=== PATIENT | male | born 1965 | race Caucasian/White ===

== ENCOUNTER 2018-09-05 12:04 | Inpatient (IN) ==
[2018-09-05] MEDS ORDERED: IBUPROFEN 600 MG TAB PO STA (12:27)
[2018-09-05] MEDS ORDERED: SODIUM CHLORIDE 0.9% 1000ML 1,000 ML IV SCH ×2 (12:30→14:00)
[2018-09-05 12:52] LABS: Basophils # (auto) 0.02 K/uL (0-0.2); Basophils % (auto) 0.1 %; Eosinophils # (auto) 0.04 K/uL (0-0.5); Eosinophils % (auto) 0.3 %; Hemoglobin 14.5 g/dL (14.0-18.0); Immature Granulocytes # (auto) 0.05 K/uL (0.00-0.02); Immature Granulocytes % (auto) 0.4 %; Lymphocytes # (auto) 0.95 K/uL (1.2-3.4); Lymphocytes % (auto) 6.7 %; Mean Corpuscular Hgb Conc 32.2 g/dL (32-36); Mean Corpuscular Volume 90.2 fL (80-100); Mean Platelet Volume 8.9 fL (7.4-10.4); Monocytes # (auto) 0.76 K/uL (0.11-0.59); Monocytes % (auto) 5.3 %; Neutrophils # (auto) 12.44 K/uL (1.4-6.5); Neutrophils % (auto) 87.2 %; Platelet Count 190 K/uL (130-400); RDW Coefficient of Variation 14.9 % (11.5-14.5); RDW Standard Deviation 48.8 fL (36.4-46.3); Red Blood Count 4.99 M/uL (4.7-6.1); White Blood Count 14.26 K/uL (4.8-10.8)
[2018-09-05 13:18] LABS: Alanine Aminotransferase 51 U/L (12-78); Albumin Globulin Ratio 0.7 (0.9-2); Albumin Level 3.6 gm/dl (3.4-5.0); Alkaline Phosphatase 68 U/L (45-117); Aspartate Aminotransferase 24 U/L (15-37); BUN Creatinine Ratio 17.3 (10-20); Bilirubin,Total 0.4 mg/dl (0.2-1); Blood Urea Nitrogen 22 mg/dl (7-18); Calcium 8.7 mg/dl (8.5-10.1); Carbon Dioxide 27 mmol/L (21-32); Chloride 100 mmol/L (98-107); Creatinine Clr Calc Pharmacy 110.3 ml/min; Est GFR (African American) 75.3; Globulin 4.9 gm/dl (2.5-4.0); Glucose 140 mg/dl (70-99); Magnesium 1.6 mg/dl (1.8-2.4); Potassium 4.7 mmol/L (3.5-5.1); Sodium 134 mmol/L (136-145); Total Protein 8.5 gm/dl (6.4-8.2); Troponin I < 0.015 ng/ml (0-0.045)
--- NOTE | 2018-09-05 13:43 | XRay Report ---
XR chest 2V routine HISTORY: 53 years-old Male Cough, fever, chest pain acute cough and fever COMPARISON: None available TECHNIQUE: PA and lateral views of the chest FINDINGS: Cardiomediastinal and hilar silhouettes are within normal limits. Mild right hemidiaphragmatic elevat ion. There is no pneumothorax, pleural effusion, focal airspace consolidation or overt pulmonary angelique a. Bones of the chest appear grossly intact. IMPRESSION: No acute process. The above report was generated using voice recognition software. It may contain grammatical, syntax o r spelling errors. Electronically signed by: Anatoliy Nelson M.D. 09/05/2018 1:42 PM
[2018-09-05] MEDS ORDERED: OPTIRAY 320 125ml IV PRN (16:02)
[2018-09-05 16:30] LABS: Appearance Urine Clear (Clear); Bilirubin Urine Negative (Negative); Color Urine Dark Yellow; Glucose Urine UA Negative (Negative); Ketones Urine Negative (Negative); Leukocyte Esterase Urine Negative (Negative); Nitrite Urine Negative (Negative); Protein Urine Negative (Negative); Specific Gravity Urine 1.029 (1.000-1.030); Urobilinogen Urine Negative (Negative)
--- NOTE | 2018-09-05 16:50 | CT Scan Report ---
CT angio chest PE protocol CT DOSE: 886.48 mGy.cm HISTORY: 53 years-old Male with febrile, cough, tachycardia, chest pain. Acute cough with tachycard ia and chest pain TECHNIQUE: Multiple CTA images of the chest were obtained after the intravenous administration of 116 ml Optiray 320. Coronal and sagittal MIPS were obtained from the axial data set and were submitted for review. All measurements were obtained according to NASCET criteria. A dose lowering technique w as utilized adhering to the principles of ALARA. Repeat CTA was conducted with 119 mL Optiray 320 IV contrast. COMPARISON: Chest radiograph of same day FINDINGS: CTA: Heart is upper limits of normal in size without pericardial effusion. No thoracic aortic aneurysm or dissection. Imaged great vessels appear patent. Pulmonary arterial tree is opacified to the lobar bra nches. Segmental and subsegmental branches not well seen secondary to contrast bolus timing and respi ratory motion. No evidence of central pulmonary thromboembolic disease. CT CHEST: Normal appearance of the thyroid. Prominent nonenlarged mediastinal lymph nodes, likely reactive. No pneumothorax or pleural effusion. Mild dependent subsegmental bibasilar atelectasis. There are no veronica picious pulmonary nodules or masses identified. 1 mm calcific granuloma of the V2 segment right upper lobe. Central airways appear patent. Hepatomegaly with hepatic steatosis. No acute process of the imaged upper abdomen. Soft tissues are w ithin normal limits. Bones appear intact. IMPRESSION: 1. Limited study as above. No evidence of central pulmonary thromboembolic disease. 2. No pleural effusion or focal airspace consolidation. 3. Hepatomegaly with hepatic steatosis. The above report was generated using voice recognition software. It may contain grammatical, syntax o r spelling errors. Electronically signed by: Anatoliy Nelson M.D. 09/05/2018 4:48 PM
[2018-09-05 16:52] LABS: Lyme Ab IgG w/WB Rflx Negative (Negative); Lyme Ab IgM w/WB Rflx Negative (Negative)
--- NOTE | 2018-09-05 17:39 | Emergency Department Note ---
History of Present Illness General Chief complaint: Fever Stated complaint: CHILLS, FEVER 103 Time Seen by Provider: 09/05/18 12:16 History of Present Illness Maximum Pain Intensity: 7 This is a 53-year-old male that presents to the emergency department via private vehicle with complaints of "chills, fever 103". The patient notes that he has had a cough for the past few weeks. He notes that he has been producing phlegm with the cough. No hemoptysis. He notes that this morning and he awoke with chills, was shaking and then took Tylenol around 10 AM. He has also had difficulty with sleeping. He notes the pain in his chest also began this morning and diffuse body aches and joint pain. He rates the overall pain currently as a 7/10. He notes he was on metformin in the past but does not take this anymore. He does not smoke. He does not have any known medical problems. He notes that he does work in [place] and recently returned home. Home Medications Home Medications Medication Instructions Recorded Confirmed Type No Known Home Medications 09/05/18 09/05/18 History Allergies Allergy/AdvReac Type Severity Reaction Status Date / Time No Known Allergies Allergy Unverified 09/05/18 12:33 Past Med/Surg History Medical History No pertinent past medical history Family History Other CHF (congestive heart failure) COPD (chronic obstructive pulmonary disease) Social History Current Living Situation: Alone Other Information That Helps Us Care for You: No Feels Safe at Home: Yes Safety Concerns: Feels Safe At This Time Smoking Status: Never smoker Hx Alcohol Use: No Hx Substance Use: No Beliefs That Will Affect Care: None Communication Ability: Effective Iv Therapy Nurse Required: No Review of Systems A total of 10 systems reviewed and were otherwise negative Physical Exam Vital Signs Vital Signs - 24 hr 09/05/18 12:11 09/05/18 13:27 09/05/18 15:10 Temperature 38.1 C H 39.5 C H 36.9 C Temperature Source Oral Oral Oral Sepsis Recent Fever Within 48 Hours Yes Sepsis New/Unexplained Change in Mental Status No Sepsis Action Taken by Nursing No Action Required Pulse Rate 128 H Pulse Rate [Apical] 134 H 126 H Pulse Rhythm [Apical] Pulse Strength Normal Pulse Strength [Apical] Respiratory Rate 22 24 23 Respiratory Effort / Characteristics Respiratory Depth Normal Respiratory Pattern Blood Pressure 173/88 H Blood Pressure [Left Arm] Blood Pressure [Right Arm] 149/74 H 108/60 Blood Pressure Mean 116 Blood Pressure Mean [Left Arm] Blood Pressure Mean [Right Arm] 99 76 Blood Pressure Position [Left Arm] Blood Pressure Position [Right Arm] Pulse Oximetry 96 91 97 Oxygen Delivery Method Room Air Room Air Room Air Oxygen Flow Rate 09/05/18 16:38 09/05/18 16:43 09/05/18 16:49 Temperature 38.2 C H Temperature Source Oral Sepsis Recent Fever Within 48 Hours Sepsis New/Unexplained Change in Mental Status Sepsis Action Taken by Nursing Pulse Rate Pulse Rate [Apical] 128 H Pulse Rhythm [Apical] Pulse Strength Pulse Strength [Apical] Respiratory Rate 30 H Respiratory Effort / Characteristics Respiratory Depth Respiratory Pattern Blood Pressure Blood Pressure [Left Arm] Blood Pressure [Right Arm] 107/57 L Blood Pressure Mean Blood Pressure Mean [Left Arm] Blood Pressure Mean [Right Arm] 73 Blood Pressure Position [Left Arm] Blood Pressure Position [Right Arm] Pulse Oximetry 89 L 90 94 Oxygen Delivery Method Room Air Room Air Nasal Cannula Oxygen Flow Rate 2 09/05/18 18:21 09/05/18 18:45 09/05/18 23:41 Temperature 37.4 C 36.9 C Temperature Source Oral Oral Sepsis Recent Fever Within 48 Hours Sepsis New/Unexplained Change in Mental Status Sepsis Action Taken by Nursing Pulse Rate 122 H Pulse Rate [Apical] 130 H 115 H Pulse Rhythm [Apical] Regular Pulse Strength Pulse Strength [Apical] Respiratory Rate 18 25 H 24 Respiratory Effort / Characteristics Spontaneous Short of Breath Respiratory Depth Normal Respiratory Pattern Regular Blood Pressure 100/65 Blood Pressure [Left Arm] Blood Pressure [Right Arm] 116/70 121/72 Blood Pressure Mean Blood Pressure Mean [Left Arm] Blood Pressure Mean [Right Arm] 85 88 Blood Pressure Position [Left Arm] Blood Pressure Position [Right Arm] Sitting Pulse Oximetry 92 93 93 Oxygen Delivery Method Room Air Room Air Oxygen Flow Rate 09/06/18 00:00 09/06/18 04:00 09/06/18 06:52 Temperature 37.7 C H 36.4 C L Temperature Source Oral Oral Sepsis Recent Fever Within 48 Hours Sepsis New/Unexplained Change in Mental Status Sepsis Action Taken by Nursing Pulse Rate 114 H Pulse Rate [Apical] 103 H 102 H Pulse Rhythm [Apical] Pulse Strength Pulse Strength [Apical] Normal Respiratory Rate 28 H 18 Respiratory Effort / Characteristics SOB on Exertion Respiratory Depth Normal Respiratory Pattern Tachypnea Blood Pressure Blood Pressure [Left Arm] 118/62 Blood Pressure [Right Arm] 125/65 Blood Pressure Mean Blood Pressure Mean [Left Arm] 80 Blood Pressure Mean [Right Arm] 85 Blood Pressure Position [Left Arm] Lying Blood Pressure Position [Right Arm] Pulse Oximetry 92 Oxygen Delivery Method Room Air Oxygen Flow Rate VITAL SIGNS - Vital signs and nursing notes were reviewed. Patient is tachycardic, febrile and hypertensive. GENERAL -53 [id number] appearing his stated age who is in no acute distress but does appear ill. Communicates well with provider and answers questions appropriately. SKIN - Without rashes. HEAD - NC/AT. EYES - PERRL with EOMI bilaterally. Sclera anicteric. EARS - No deformities of external structures noted on gross examination bilaterally. External auditory canals without discharge or otorrhea. Tympanic membranes pearly buckner without retraction or bulging. No fluid or purulent material visualized behind the TM. Handle of malleus, umbo, cone of light, pars tensa/flaccid all easily visualized. NOSE - Midline and without cyanosis. No epistaxis or purulent drainage noted. Septum midline without deviation or septal hematoma noted. MOUTH/OROPHARYNX - Without perioral cyanosis. Buccal mucosa pink and moist and without leukoplakia. Tongue midline with equal elevation of palate bilaterally. Minimal posterior pharyngeal erythema. No tonsillar hypertrophy, or exudates noted. Fair dentition noted. NECK - Neck with FROM. Supple to palpation. No lymphadenopathy noted. No nuchal rigidity. LUNGS - Chest wall symmetric without accessory muscle use, intercostals retractions, or central cyanosis. Normal vesicular breath sounds CTA B/L. No wheezes, rales, or rhonchi appreciated. CARDIAC - RRR with S1/S2. No murmur, rubs, or gallops appreciated. ABDOMEN - Abdominal contour normal without pulsations or visible masses. BS normoactive all four quadrants. No tenderness, palpable masses, hepatosplenomegaly, or ascites noted. EXTREMITIES - No clubbing or peripheral cyanosis. No pretibial edema present. +5 /5 strength noted in UE/LE bilaterally. NEUROLOGIC - Cranial nerves II through XII grossly intact. PSYCH - A&O, and cooperates fully with examiner. Pt is very pleasant and interacts well with examiner. Course Administered Medications Acetaminophen (Tylenol) 650 mg PO Q4H PRN PRN Reason: Pain or Fever Stop: 10/05/18 18:55 Last Admin: 09/05/18 22:35 Dose: 650 mg Enoxaparin Sodium (Lovenox) 40 mg SQ Q24H PHILIP Stop: 10/05/18 21:59 Last Admin: 09/05/18 22:25 Dose: 40 mg Sodium Chloride (Nss 1000ml) 1,000 mls @ 125 mls/hr IV .Q8H PHILIP Stop: 09/06/18 10:55 Last Admin: 09/06/18 03:34 Dose: 125 mls/hr Infusion: 09/06/18 03:26 Dose: 125 mls/hr Admin: 09/05/18 19:26 Dose: 125 mls/hr Ibuprofen (Motrin) 600 mg PO Q6H PRN PRN Reason: Fever Stop: 10/05/18 18:55 Last Admin: 09/06/18 03:30 Dose: 600 mg Discontinued Medications Sodium Chloride (Nss 1000ml) 1,000 mls @ 999 mls/hr IV .Q1H1M PHILIP Stop: 09/05/18 13:30 Last Infusion: 09/05/18 14:01 Dose: 0 mls/hr Admin: 09/05/18 12:49 Dose: 999 mls/hr Sodium Chloride (Nss 1000ml) 1,000 mls @ 999 mls/hr IV .Q1H1M PHILIP Stop: 09/05/18 15:00 Last Infusion: 09/05/18 15:11 Dose: 0 mls/hr Admin: 09/05/18 14:01 Dose: 999 mls/hr Ibuprofen (Motrin) 600 mg PO NOW STA Stop: 09/05/18 12:28 Last Admin: 09/05/18 12:49 Dose: 600 mg Ioversol (Optiray 320 125ml) 119 ml IV ONCE PRN PRN Reason: Interaction Checking Stop: 09/09/18 16:01 Last Admin: 09/05/18 16:02 Dose: 119 ml Medical Decision Making Laboratory Data Result diagrams: 09/06/18 05:30 09/06/18 05:30 Lab Results 09/05/18 09/05/18 09/05/18 Range/Units 12:36 12:44 12:44 WBC 14.26 H (4.8-10.8) K/uL RBC 4.99 (4.7-6.1) M/uL Hgb 14.5 (14.0-18.0) g/dL Hct 45.0 (42-52) % MCV 90.2 (80-100) fL MCH 29.1 (25-34) pg MCHC 32.2 (32-36) g/dL RDW Std Deviation 48.8 H (36.4-46.3) fL RDW Coeff of Luke 14.9 H (11.5-14.5) % Plt Count 190 (130-400) K/uL MPV 8.9 (7.4-10.4) fL Immature Gran % (Auto) 0.4 % Neut % (Auto) 87.2 % Lymph % (Auto) 6.7 % Lander % (Auto) 5.3 % Eos % (Auto) 0.3 % Baso % (Auto) 0.1 % Immature Gran # (Auto) 0.05 H (0.00-0.02) K/uL Neut # (Auto) 12.44 H (1.4-6.5) K/uL Lymph # (Auto) 0.95 L (1.2-3.4) K/uL Lander # (Auto) 0.76 H (0.11-0.59) K/uL Eos # (Auto) 0.04 (0-0.5) K/uL Baso # (Auto) 0.02 (0-0.2) K/uL ESR (0-14) mm/hr PT (9.0-12.0) Seconds INR (0.9-1.1) APTT (21.0-31.0) Seconds PTT Ratio D-Dimer (0-500) ug/L FEU Sodium 134 L (136-145) mmol/L Potassium 4.7 (3.5-5.1) mmol/L Chloride 100 (98-107) mmol/L Carbon Dioxide 27 (21-32) mmol/L Anion Gap 7.0 (3-11) BUN 22 H (7-18) mg/dl Creatinine 1.27 (0.6-1.4) mg/dl Est Cr Clr Drug Dosing 110.3 ml/min Est GFR ( Amer) 75.3 Est GFR (Non-Af Amer) 65.0 BUN/Creatinine Ratio 17.3 (10-20) Glucose 140 H (70-99) mg/dl Lactate (0.4-2.0) mmol/L Calcium 8.7 (8.5-10.1) mg/dl Magnesium 1.6 L (1.8-2.4) mg/dl Total Bilirubin 0.4 (0.2-1) mg/dl AST 24 (15-37) U/L ALT 51 (12-78) U/L Alkaline Phosphatase 68 (45-117) U/L Troponin I < 0.015 (0-0.045) ng/ml C-Reactive Protein (0-0.29) mg/dl Total Protein 8.5 H (6.4-8.2) gm/dl Albumin 3.6 (3.4-5.0) gm/dl Globulin 4.9 H (2.5-4.0) gm/dl Albumin/Globulin Ratio 0.7 L (0.9-2) Specimen Hemolysis Urine Color Urine Appearance (Clear) Urine pH (4.5-7.5) Ur Specific Azalea (1.000-1.030) Urine Protein (Negative) Urine Glucose (UA) (Negative) Urine Ketones (Negative) Urine Blood (Negative) Urine Nitrite (Negative) Urine Bilirubin (Negative) Urine Urobilinogen (Negative) Ur Leukocyte Esterase (Negative) Lyme Disease IgG Ab (Negative) Lyme Disease IgM Ab (Negative) Influenza Type A Ag Neg for Influ A (Neg) Influenza Type B Ag Neg for Influ B (Neg) 09/05/18 09/05/18 09/05/18 Range/Units 12:44 12:44 15:42 WBC (4.8-10.8) K/uL RBC (4.7-6.1) M/uL Hgb (14.0-18.0) g/dL Hct (42-52) % MCV (80-100) fL MCH (25-34) pg MCHC (32-36) g/dL RDW Std Deviation (36.4-46.3) fL RDW Coeff of Luke (11.5-14.5) % Plt Count (130-400) K/uL MPV (7.4-10.4) fL Immature Gran % (Auto) % Neut % (Auto) % Lymph % (Auto) % Lander % (Auto) % Eos % (Auto) % Baso % (Auto) % Immature Gran # (Auto) (0.00-0.02) K/uL Neut # (Auto) (1.4-6.5) K/uL Lymph # (Auto) (1.2-3.4) K/uL Lander # (Auto) (0.11-0.59) K/uL Eos # (Auto) (0-0.5) K/uL Baso # (Auto) (0-0.2) K/uL ESR (0-14) mm/hr PT 10.6 (9.0-12.0) Seconds INR 1.1 (0.9-1.1) APTT 26.0 (21.0-31.0) Seconds PTT Ratio 1.0 D-Dimer 570 H* (0-500) ug/L FEU Sodium (136-145) mmol/L Potassium (3.5-5.1) mmol/L Chloride (98-107) mmol/L Carbon Dioxide (21-32) mmol/L Anion Gap (3-11) BUN (7-18) mg/dl Creatinine (0.6-1.4) mg/dl Est Cr Clr Drug Dosing ml/min Est GFR ( Amer) Est GFR (Non-Af Amer) BUN/Creatinine Ratio (10-20) Glucose (70-99) mg/dl Lactate (0.4-2.0) mmol/L Calcium (8.5-10.1) mg/dl Magnesium (1.8-2.4) mg/dl Total Bilirubin (0.2-1) mg/dl AST (15-37) U/L ALT (12-78) U/L Alkaline Phosphatase (45-117) U/L Troponin I (0-0.045) ng/ml C-Reactive Protein (0-0.29) mg/dl Total Protein (6.4-8.2) gm/dl Albumin (3.4-5.0) gm/dl Globulin (2.5-4.0) gm/dl Albumin/Globulin Ratio (0.9-2) Specimen Hemolysis Urine Color Urine Appearance (Clear) Urine pH (4.5-7.5) Ur Specific Azalea (1.000-1.030) Urine Protein (Negative) Urine Glucose (UA) (Negative) Urine Ketones (Negative) Urine Blood (Negative) Urine Nitrite (Negative) Urine Bilirubin (Negative) Urine Urobilinogen (Negative) Ur Leukocyte Esterase (Negative) Lyme Disease IgG Ab Negative (Negative) Lyme Disease IgM Ab Negative (Negative) Influenza Type A Ag (Neg) Influenza Type B Ag (Neg) 09/05/18 09/05/18 09/06/18 Range/Units 15:42 16:15 05:30 WBC 17.67 H (4.8-10.8) K/uL RBC 4.54 L (4.7-6.1) M/uL Hgb 13.0 L (14.0-18.0) g/dL Hct 40.7 L (42-52) % MCV 89.6 (80-100) fL MCH 28.6 (25-34) pg MCHC 31.9 L (32-36) g/dL RDW Std Deviation 50.2 H (36.4-46.3) fL RDW Coeff of Luke 15.2 H (11.5-14.5) % Plt Count 172 (130-400) K/uL MPV 8.5 (7.4-10.4) fL Immature Gran % (Auto) 0.2 % Neut % (Auto) 88.2 % Lymph % (Auto) 5.0 % Lander % (Auto) 6.3 % Eos % (Auto) 0.1 % Baso % (Auto) 0.2 % Immature Gran # (Auto) 0.04 H (0.00-0.02) K/uL Neut # (Auto) 15.58 H (1.4-6.5) K/uL Lymph # (Auto) 0.89 L (1.2-3.4) K/uL Lander # (Auto) 1.12 H (0.11-0.59) K/uL Eos # (Auto) 0.01 (0-0.5) K/uL Baso # (Auto) 0.03 (0-0.2) K/uL ESR (0-14) mm/hr PT (9.0-12.0) Seconds INR (0.9-1.1) APTT (21.0-31.0) Seconds PTT Ratio D-Dimer (0-500) ug/L FEU Sodium (136-145) mmol/L Potassium (3.5-5.1) mmol/L Chloride (98-107) mmol/L Carbon Dioxide (21-32) mmol/L Anion Gap (3-11) BUN (7-18) mg/dl Creatinine (0.6-1.4) mg/dl Est Cr Clr Drug Dosing ml/min Est GFR ( Amer) Est GFR (Non-Af Amer) BUN/Creatinine Ratio (10-20) Glucose (70-99) mg/dl Lactate 2.2 H* (0.4-2.0) mmol/L Calcium (8.5-10.1) mg/dl Magnesium (1.8-2.4) mg/dl Total Bilirubin (0.2-1) mg/dl AST (15-37) U/L ALT (12-78) U/L Alkaline Phosphatase (45-117) U/L Troponin I (0-0.045) ng/ml C-Reactive Protein (0-0.29) mg/dl Total Protein (6.4-8.2) gm/dl Albumin (3.4-5.0) gm/dl Globulin (2.5-4.0) gm/dl Albumin/Globulin Ratio (0.9-2) Specimen Hemolysis Urine Color Dark Yellow Urine Appearance Clear (Clear) Urine pH 6.0 (4.5-7.5) Ur Specific Azalea 1.029 (1.000-1.030) Urine Protein Negative (Negative) Urine Glucose (UA) Negative (Negative) Urine Ketones Negative (Negative) Urine Blood Negative (Negative) Urine Nitrite Negative (Negative) Urine Bilirubin Negative (Negative) Urine Urobilinogen Negative (Negative) Ur Leukocyte Esterase Negative (Negative) Lyme Disease IgG Ab (Negative) Lyme Disease IgM Ab (Negative) Influenza Type A Ag (Neg) Influenza Type B Ag (Neg) 09/06/18 09/06/18 09/06/18 Range/Units 05:30 08:10 08:10 WBC (4.8-10.8) K/uL RBC (4.7-6.1) M/uL Hgb (14.0-18.0) g/dL Hct (42-52) % MCV (80-100) fL MCH (25-34) pg MCHC (32-36) g/dL RDW Std Deviation (36.4-46.3) fL RDW Coeff of Luke (11.5-14.5) % Plt Count (130-400) K/uL MPV (7.4-10.4) fL Immature Gran % (Auto) % Neut % (Auto) % Lymph % (Auto) % Lander % (Auto) % Eos % (Auto) % Baso % (Auto) % Immature Gran # (Auto) (0.00-0.02) K/uL Neut # (Auto) (1.4-6.5) K/uL Lymph # (Auto) (1.2-3.4) K/uL Lander # (Auto) (0.11-0.59) K/uL Eos # (Auto) (0-0.5) K/uL Baso # (Auto) (0-0.2) K/uL ESR 38 H (0-14) mm/hr PT (9.0-12.0) Seconds INR (0.9-1.1) APTT (21.0-31.0) Seconds PTT Ratio D-Dimer (0-500) ug/L FEU Sodium 135 L (136-145) mmol/L Potassium 3.9 D (3.5-5.1) mmol/L Chloride 103 (98-107) mmol/L Carbon Dioxide 26 (21-32) mmol/L Anion Gap 6.0 (3-11) BUN 24 H (7-18) mg/dl Creatinine 1.19 (0.6-1.4) mg/dl Est Cr Clr Drug Dosing 133.7 ml/min Est GFR ( Amer) 81.5 Est GFR (Non-Af Amer) 70.3 BUN/Creatinine Ratio 20.1 H (10-20) Glucose 114 H (70-99) mg/dl Lactate (0.4-2.0) mmol/L Calcium 7.8 L (8.5-10.1) mg/dl Magnesium 1.7 L (1.8-2.4) mg/dl Total Bilirubin (0.2-1) mg/dl AST (15-37) U/L ALT (12-78) U/L Alkaline Phosphatase (45-117) U/L Troponin I 0.031 (0-0.045) ng/ml C-Reactive Protein 15.40 H (0-0.29) mg/dl Total Protein (6.4-8.2) gm/dl Albumin (3.4-5.0) gm/dl Globulin (2.5-4.0) gm/dl Albumin/Globulin Ratio (0.9-2) Specimen Hemolysis Urine Color Urine Appearance (Clear) Urine pH (4.5-7.5) Ur Specific Azalea (1.000-1.030) Urine Protein (Negative) Urine Glucose (UA) (Negative) Urine Ketones (Negative) Urine Blood (Negative) Urine Nitrite (Negative) Urine Bilirubin (Negative) Urine Urobilinogen (Negative) Ur Leukocyte Esterase (Negative) Lyme Disease IgG Ab (Negative) Lyme Disease IgM Ab (Negative) Influenza Type A Ag (Neg) Influenza Type B Ag (Neg) 09/06/18 09/06/18 Range/Units 08:11 08:11 WBC (4.8-10.8) K/uL RBC (4.7-6.1) M/uL Hgb (14.0-18.0) g/dL Hct (42-52) % MCV (80-100) fL MCH (25-34) pg MCHC (32-36) g/dL RDW Std Deviation (36.4-46.3) fL RDW Coeff of Luke (11.5-14.5) % Plt Count (130-400) K/uL MPV (7.4-10.4) fL Immature Gran % (Auto) % Neut % (Auto) % Lymph % (Auto) % Lander % (Auto) % Eos % (Auto) % Baso % (Auto) % Immature Gran # (Auto) (0.00-0.02) K/uL Neut # (Auto) (1.4-6.5) K/uL Lymph # (Auto) (1.2-3.4) K/uL Lander # (Auto) (0.11-0.59) K/uL Eos # (Auto) (0-0.5) K/uL Baso # (Auto) (0-0.2) K/uL ESR (0-14) mm/hr PT (9.0-12.0) Seconds INR (0.9-1.1) APTT (21.0-31.0) Seconds PTT Ratio D-Dimer (0-500) ug/L FEU Sodium (136-145) mmol/L Potassium (3.5-5.1) mmol/L Chloride (98-107) mmol/L Carbon Dioxide (21-32) mmol/L Anion Gap (3-11) BUN (7-18) mg/dl Creatinine (0.6-1.4) mg/dl Est Cr Clr Drug Dosing ml/min Est GFR ( Amer) Est GFR (Non-Af Amer) BUN/Creatinine Ratio (10-20) Glucose (70-99) mg/dl Lactate 0.8 (0.4-2.0) mmol/L Calcium (8.5-10.1) mg/dl Magnesium Cancelled (1.8-2.4) mg/dl Total Bilirubin (0.2-1) mg/dl AST (15-37) U/L ALT (12-78) U/L Alkaline Phosphatase (45-117) U/L Troponin I (0-0.045) ng/ml C-Reactive Protein Cancelled (0-0.29) mg/dl Total Protein (6.4-8.2) gm/dl Albumin (3.4-5.0) gm/dl Globulin (2.5-4.0) gm/dl Albumin/Globulin Ratio (0.9-2) Specimen Hemolysis Urine Color Urine Appearance (Clear) Urine pH (4.5-7.5) Ur Specific Azalea (1.000-1.030) Urine Protein (Negative) Urine Glucose (UA) (Negative) Urine Ketones (Negative) Urine Blood (Negative) Urine Nitrite (Negative) Urine Bilirubin (Negative) Urine Urobilinogen (Negative) Ur Leukocyte Esterase (Negative) Lyme Disease IgG Ab (Negative) Lyme Disease IgM Ab (Negative) Influenza Type A Ag (Neg) Influenza Type B Ag (Neg) Imaging Data Radiologist's Impression: XR chest 2V routine HISTORY: 53 years-old Male Cough, fever, chest pain acute cough and fever COMPARISON: None available TECHNIQUE: PA and lateral views of the chest FINDINGS: Cardiomediastinal and hilar silhouettes are within normal limits. Mild right hemidiaphragmatic elevation. There is no pneumothorax, pleural effusion, focal airspace consolidation or overt pulmonary edema. Bones of the chest appear grossly intact. IMPRESSION: No acute process. The above report was generated using voice recognition software. It may contain grammatical, syntax or spelling errors. Electronically signed by: Anatoliy Nelson M.D. 09/05/2018 1:[address] angio chest PE protocol CT DOSE: 886.48 mGy.cm HISTORY: 53 years-old Male with febrile, cough, tachycardia, chest pain. Acute cough with tachycardia and chest pain TECHNIQUE: Multiple CTA images of the chest were obtained after the intravenous administration of 116 ml Optiray 320. Coronal and sagittal MIPS were obtained from the axial data set and were submitted for review. All measurements were obtained according to NASCET criteria. A dose lowering technique was utilized adhering to the principles of ALARA. Repeat CTA was conducted with 119 mL Optiray 320 IV contrast. COMPARISON: Chest radiograph of same day FINDINGS: CTA: Heart is upper limits of normal in size without pericardial effusion. No thoracic aortic aneurysm or dissection. Imaged great vessels appear patent. Pulmonary arterial tree is opacified to the lobar branches. Segmental and subsegmental branches not well seen secondary to contrast bolus timing and respiratory motion. No evidence of central pulmonary thromboembolic disease. CT CHEST: Normal appearance of the thyroid. Prominent nonenlarged mediastinal lymph nodes , likely reactive. No pneumothorax or pleural effusion. Mild dependent subsegmental bibasilar atelectasis. There are no suspicious pulmonary nodules or masses identified. 1 mm calcific granuloma of the V2 segment right upper lobe. Central airways appear patent. Hepatomegaly with hepatic steatosis. No acute process of the imaged upper abdomen. Soft tissues are within normal limits. Bones appear intact. IMPRESSION: 1. Limited study as above. No evidence of central pulmonary thromboembolic disease. 2. No pleural effusion or focal airspace consolidation. 3. Hepatomegaly with hepatic steatosis. The above report was generated using voice recognition software. It may contain grammatical, syntax or spelling errors. Electronically signed by: Anatoliy Nelson M.D. 09/05/2018 4:48 PM [facility] Narrative Patient was seen and evaluated as above in room C 10. Review was performed of nursing notes and vital signs. After obtaining a thorough history and physical examination the above work up was performed. He presents to us today with a fever and chills. He does appear to be ill. His vital signs do reveal tachycardia, hypertension and febrile state. This was of sudden onset and is likely viral in nature. IV access was established. Chest x-ray was negative. Rapid strep was negative, influenza negative, Lyme testing negative. There is leukocytosis of 14.26. No significant anemia. D-dimer elevated at 570, sodium 134, glucose 140, lactic 2.2, magnesium 1.6 and urinalysis as well as Lyme and influenza testing negative. A CT scan was performed of the chest given the patient's persistent tachycardia, and O2 saturations in the low 90s. This was negative for PE. I was notified by CT that they did have to scan him twice as the first did not provide adequate filling of the arterial tree. The patient despite the 2 L of fluid persisted with tachycardia. The Motrin did help with the fever. I do believe that further evaluation and management is warranted in the inpatient setting given the persistent tachycardia. Case discussed with the attending physician and subsequent to the hospitalist. I discussed this with Dr. Montes De Oca. We discussed potential antibiotics. At this time a viral process is favored. Please refer to further documentation regarding his stay. Case was discussed with the attending physician. In the evaluation and treatment of this patient the following differential diagnoses were entertained: Sepsis, influenza, viral illness, pneumonia, NV, PE , pericarditis, among others. Impression & Plan Elevated d-dimer, Fever, Tachycardia Discharge Plan Visit Data *Final* Discharge Date/Time: 09/05/18 18:21 Chief Complaint: Fever Stated Complaint: CHILLS, FEVER 103 ED Provider: Juan David Harris ED Midlevel Provider: Guillermo Alfred Discharge Problem: Elevated d-dimer, Fever, Tachycardia Patient Disposition: Admitted As Inpatient Condition: Fair Discharge Instructions Interventions: ED Discharge Assessment Last Done: 09/05/18 18:21
--- NOTE | 2018-09-05 17:52 | History & Physical Report ---
Date of Service September 05, 2018 Assessment & Plan (1) Fever: febrile illness with significant chills, sweats, body aches sudden onset this morning, felt well yesterday leukocytosis of 14k no obvious signs of bacterial infection CT chest clear for infiltrate, urine clean, no abdominal pain, no diarrhea will treat with NSS at 125cc/hr, Tylenol and Ibuprofen as needed repeat BMP and CBC in the morning (2) Tachycardia: due to febrile illness CTA did not show any central PE treat with fluids (3) Hypoxia: likely due to febrile illnes, body habitus try to wean overnight no wheezing on exam, lungs clear CTA chest shows no PE, no infiltrate (4) Elevated d-dimer: slightly high at 570 no PE on CTA chest has leg pain bilaterally but this is chronic certainly at high risk for VTE given obesity and frequent travel to [place] just completed three day car trip will check venous doppler bilaterally to rule our DVT History of Present Illness Chief Complaint: I woke up with terrible chills Primary Care Provider: NO PCP 53 yo male with history of obesity and borderline diabetes, presents to the ED with sudden onset of chills and high grade fever that started suddenly this morning. The patient says he felt well the past few days. 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 He and his spent three days traveling by car from [place]. They would get out frequently and walk around. He had a good [place], felt normal. His appetite has been good. This morning he had terrible chills and then a high grade fever. His entire body is sore, especially his shoulders and back. His legs hurt, specifically his knees, but he has chronic arthritis. He has an intermittent, non-productive cough, says this is chronic issue, nothing new or worse. He was placed on oxygen but does not feel short of breath at all. His appetite is normal, he ate today. No nausea, no abdominal pain, no diarrhea. No rashes seen. No one else in the house is sick. Very thorough work up in the ED with CXR that was clear, CTA chest negative for central PE, no infiltrates seen. WBC elevated at 14k. BMP normal, lactate 2.2. D dimer slightly high at 570. Treated with Ibuprofen for his fever and NSS x 2 liters. HR elevated in 120's and BP in 100's systolic. 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, high stress Allergies Allergy/AdvReac Type Severity Reaction Status Date / Time No Known Allergies Allergy Unverified 09/05/18 12:33 Home Medications Home Medications Medication Instructions Recorded Confirmed Type No Known Home Medications 09/05/18 09/05/18 History Past Med/Surg History Medical History No pertinent past medical history Family History Other CHF (congestive heart failure) COPD (chronic obstructive pulmonary disease) Social History Feels Safe at Home: Yes Smoking Status: Never smoker Preferred Language: Georgian Review of Systems All systems reviewed & are unremarkable except as noted in HPI & below Constitutional: + fever, + chills, + sweats, + body aches and + malaise Respiratory: + cough (dry, intermittent, not a serious complaint); no chest congestion, no dyspnea, no pain on inspiration and no wheezing Cardiovascular: no chest pain, no chest pain at rest, no dyspnea, no dyspnea on exertion, no palpitations, no syncope, no edema and no claudication Gastrointestinal: no abdominal pain, no nausea, no vomiting, no constipation and no diarrhea/loose stools Genitourinary (Male): no dysuria, no difficulty urinating, no urinary frequency and no urinary hesitancy Integumentary: no rash Physical Exam 2 Vital Signs (Past 24 Hours): Last Vital Signs Temp 38.2 C H 09/05/18 16:43 Pulse 128 H 09/05/18 16:43 Resp 30 H 09/05/18 16:43 BP 107/57 L 09/05/18 16:43 Pulse Ox 94 09/05/18 16:49 Constitutional: well developed, well nourished, + ill appearing and + morbidly obese; no acute distress Eyes: PERRL, conjunctivae normal, anicteric sclerae ENMT: external ear and nose normal, oropharynx normal Neck: trachea midline, no thyromegaly Respiratory: normal respiratory effort, lungs clear to auscultation Auscultation: + diminished lung sounds (bases) Cardiovascular: Rate/Rhythm: regular rhythm and + tachycardic Heart Sounds : normal S1 and normal S2; no murmur and no cardiac rub Gastrointestinal (Abdomen): normal bowel sounds, soft, nontender, no hepatosplenomegaly Musculoskeletal: no cyanosis or clubbing, extremities motor strength 5/5 Skin: no rashes, warm and dry Neurologic: patellar DTR's 2+ bilat, sensation intact and PERRL, EOMI, accommodation nl, no face palsy, no dysarthria Psychiatric: A+Ox3, euthymic affect Lymphatic: no cervical or axillary lymphadenopathy Results & Data Laboratory Results Laboratory Results - last 24 hr 09/05/18 09/05/18 09/05/18 12:36 12:44 12:44 WBC 14.26 H RBC 4.99 Hgb 14.5 Hct 45.0 MCV 90.2 MCH 29.1 MCHC 32.2 RDW Std Deviation 48.8 H RDW Coeff of Luke 14.9 H Plt Count 190 MPV 8.9 Immature Gran % (Auto) 0.4 Neut % (Auto) 87.2 Lymph % (Auto) 6.7 [place] % (Auto) 5.3 Eos % (Auto) 0.3 Baso % (Auto) 0.1 Immature Gran # (Auto) 0.05 H Neut # (Auto) 12.44 H Lymph # (Auto) 0.95 L [place] # (Auto) 0.76 H Eos # (Auto) 0.04 Baso # (Auto) 0.02 D-Dimer Sodium 134 L Potassium 4.7 Chloride 100 Carbon Dioxide 27 Anion Gap 7.0 BUN 22 H Creatinine 1.27 Est Cr Clr Drug Dosing 110.3 Est GFR ( Amer) 75.3 Est GFR (Non-Af Amer) 65.0 BUN/Creatinine Ratio 17.3 Glucose 140 H Lactate Calcium 8.7 Magnesium 1.6 L Total Bilirubin 0.4 AST 24 ALT 51 Alkaline Phosphatase 68 Troponin I < 0.015 Total Protein 8.5 H Albumin 3.6 Globulin 4.9 H Albumin/Globulin Ratio 0.7 L Specimen Hemolysis Urine Color Urine Appearance Urine pH Ur Specific [place] Urine Protein Urine Glucose (UA) Urine Ketones Urine Blood Urine Nitrite Urine Bilirubin Urine Urobilinogen Ur Leukocyte Esterase Lyme Disease IgG Ab Lyme Disease IgM Ab Influenza Type A Ag Neg for Influ A Influenza Type B Ag Neg for Influ B 09/05/18 09/05/18 09/05/18 12:44 15:42 15:42 WBC RBC Hgb Hct MCV MCH MCHC RDW Std Deviation RDW Coeff of Luke Plt Count MPV Immature Gran % (Auto) Neut % (Auto) Lymph % (Auto) [place] % (Auto) Eos % (Auto) Baso % (Auto) Immature Gran # (Auto) Neut # (Auto) Lymph # (Auto) [place] # (Auto) Eos # (Auto) Baso # (Auto) D-Dimer 570 H* Sodium Potassium Chloride Carbon Dioxide Anion Gap BUN Creatinine Est Cr Clr Drug Dosing Est GFR ( Amer) Est GFR (Non-Af Amer) BUN/Creatinine Ratio Glucose Lactate 2.2 H* Calcium Magnesium Total Bilirubin AST ALT Alkaline Phosphatase Troponin I Total Protein Albumin Globulin Albumin/Globulin Ratio Specimen Hemolysis Urine Color Urine Appearance Urine pH Ur Specific [place] Urine Protein Urine Glucose (UA) Urine Ketones Urine Blood Urine Nitrite Urine Bilirubin Urine Urobilinogen Ur Leukocyte Esterase Lyme Disease IgG Ab Negative Lyme Disease IgM Ab Negative Influenza Type A Ag Influenza Type B Ag 09/05/18 16:15 WBC RBC Hgb Hct MCV MCH MCHC RDW Std Deviation RDW Coeff of Luke Plt Count MPV Immature Gran % (Auto) Neut % (Auto) Lymph % (Auto) [place] % (Auto) Eos % (Auto) Baso % (Auto) Immature Gran # (Auto) Neut # (Auto) Lymph # (Auto) [place] # (Auto) Eos # (Auto) Baso # (Auto) D-Dimer Sodium Potassium Chloride Carbon Dioxide Anion Gap BUN Creatinine Est Cr Clr Drug Dosing Est GFR ( Amer) Est GFR (Non-Af Amer) BUN/Creatinine Ratio Glucose Lactate Calcium Magnesium Total Bilirubin AST ALT Alkaline Phosphatase Troponin I Total Protein Albumin Globulin Albumin/Globulin Ratio Specimen Hemolysis Urine Color Dark Yellow Urine Appearance Clear Urine pH 6.0 Ur Specific [place] 1.029 Urine Protein Negative Urine Glucose (UA) Negative Urine Ketones Negative Urine Blood Negative Urine Nitrite Negative Urine Bilirubin Negative Urine Urobilinogen Negative Ur Leukocyte Esterase Negative Lyme Disease IgG Ab Lyme Disease IgM Ab Influenza Type A Ag Influenza Type B Ag Diagnostic Findings XR chest 2V routine HISTORY: 53 years-old Male Cough, fever, chest pain acute cough and fever COMPARISON: None available TECHNIQUE: PA and lateral views of the chest FINDINGS: Cardiomediastinal and hilar silhouettes are within normal limits. Mild right hemidiaphragmatic elevation. There is no pneumothorax, pleural effusion, focal airspace consolidation or overt pulmonary edema. Bones of the chest appear grossly intact. IMPRESSION: No acute process. CTA chest IMPRESSION: 1. Limited study as above. No evidence of central pulmonary thromboembolic disease. 2. No pleural effusion or focal airspace consolidation. 3. Hepatomegaly with hepatic steatosis. Medications Administered Current Inpatient Medications Ioversol (Optiray 320 125ml) 119 ml IV ONCE PRN PRN Reason: Interaction Checking Stop: 09/09/18 16:01 Last Admin: 09/05/18 16:02 Dose: 119 ml Code Status & VTE Plan Code Status full code VTE Prophylaxis Plan VTE Prophylaxis will be ordered: Yes
[2018-09-05] MEDS ORDERED: ONDANSETRON INJ 2 MG/ML 2 ML VIAL IV PRN (18:56)
[2018-09-05] MEDS: SODIUM CHLORIDE 0.9% 1000ML 1,000 ML IV SCH (19:26)
[2018-09-05 19:33] LABS: INR 1.1 (0.9-1.1); Prothrombin Time 10.6 Seconds (9.0-12.0)
[2018-09-05] MEDS: ENOXAPARIN INJ 40 MG/0.4 ML SYR SQ SCH (22:25)
--- NOTE | 2018-09-05 22:32 | Ultrasound Report ---
BILATERAL LOWER EXTREMITY VENOUS DOPPLER HISTORY: Acute pain and swelling of the bilateral lower legs bilateral leg pain, elevated d dimer COMPARISON STUDY: CTA chest of same day. FINDINGS: There is normal compressibility, flow, and augmentation within the bilateral lower extremit y deep venous systems. IMPRESSION: No sonographic evidence of deep venous thrombosis within the right or left lower extremity. Electronically signed by: Anatoliy Nelson M.D. 09/05/2018 10:30 PM
[2018-09-05] MEDS: ACETAMINOPHEN 325 MG TAB PO PRN (22:35)
[2018-09-06] MEDS: IBUPROFEN 600 MG TAB PO PRN ×2 (03:30→23:39)
[2018-09-06] MEDS: SODIUM CHLORIDE 0.9% 1000ML 1,000 ML IV SCH (03:34)
[2018-09-06 06:05] LABS: Basophils # (auto) 0.03 K/uL (0-0.2); Basophils % (auto) 0.2 %; Eosinophils # (auto) 0.01 K/uL (0-0.5); Eosinophils % (auto) 0.1 %; Hematocrit (blood only) 40.7 % (42-52); Immature Granulocytes # (auto) 0.04 K/uL (0.00-0.02); Immature Granulocytes % (auto) 0.2 %; Lymphocytes # (auto) 0.89 K/uL (1.2-3.4); Mean Corpuscular Hgb Conc 31.9 g/dL (32-36); Mean Corpuscular Volume 89.6 fL (80-100); Mean Platelet Volume 8.5 fL (7.4-10.4); Monocytes # (auto) 1.12 K/uL (0.11-0.59); Monocytes % (auto) 6.3 %; Neutrophils # (auto) 15.58 K/uL (1.4-6.5); Neutrophils % (auto) 88.2 %; Platelet Count 172 K/uL (130-400); RDW Coefficient of Variation 15.2 % (11.5-14.5); RDW Standard Deviation 50.2 fL (36.4-46.3); Red Blood Count 4.54 M/uL (4.7-6.1); White Blood Count 17.67 K/uL (4.8-10.8)
[2018-09-06 06:40] LABS: BUN Creatinine Ratio 20.1 (10-20); Calcium 7.8 mg/dl (8.5-10.1); Creatinine Clr Calc Pharmacy 133.7 ml/min; Est GFR (African American) 81.5; Est GFR (Non-African American) 70.3; Potassium 3.9 mmol/L (3.5-5.1)
[2018-09-06 08:45] LABS: C Reactive Protein 15.4 mg/dl (0-0.29); Magnesium 1.7 mg/dl (1.8-2.4); Troponin I 0.031 ng/ml (0-0.045)
--- NOTE | 2018-09-06 11:38 | Infectious Disease Consult ---
Date of Consultation September 06, 2018 Assessment & Plan (1) Influenza: flu swab negative but clinical picture fits with flu, continue treatment with tamiflu. asking to go home. Can stop abx from ID standpoint, suspect viral cause for fever. (2) Fever: History of Present Illness Attending Physician: Dre Zimmerman MD, PhD, [facility] pt admitted with acute onset fever, diffuse myalgias and cough yesterday. placed on rocephin and tamiflu. flu swab negative, rapid strep negative. feeling much better today. states cough greatly improved, no fevers currently, tmax overnight 39.5. wbc increased to 17 today. UA, lyme titer negative in ER as well. CXR and CTA negative. dopplers of legs done as well, no clots noted. blood cultures pending. states he is eating well. no n/v/d/abd pain, currently denies cough, sob, cp, on nc O2, does not normally need. asking to go home. ID consulted for FUO Allergies Allergy/AdvReac Type Severity Reaction Status Date / Time No Known Allergies Allergy Unverified 09/05/18 12:33 Home Medications Home Medications Medication Instructions Recorded Confirmed Type No Known Home Medications 09/05/18 09/05/18 History Patient History Medical History No pertinent past medical history Family History Other CHF (congestive heart failure) COPD (chronic obstructive pulmonary disease) Social History Current Living Situation: Alone Other Information That Helps Us Care for You: No Feels Safe at Home: Yes Safety Concerns: Feels Safe At This Time Smoking Status: Never smoker Hx Alcohol Use: No Hx Substance Use: No Beliefs That Will Affect Care: None Communication Ability: Effective Supervisor Payroll Required: No Review of Systems all remaining ros reviewed and are negative Physical Exam 2 Vital Signs (Past 24 Hours): Last Vital Signs Temp 36.4 C L 09/06/18 06:52 Pulse 102 H 09/06/18 06:52 Resp 18 09/06/18 06:52 BP 125/65 09/06/18 06:52 Pulse Ox 92 09/06/18 04:00 Constitutional: WD/WN, vitals as above Eyes: PERRL, conjunctivae normal, anicteric sclerae ENMT: external ear and nose normal, oropharynx normal Neck: trachea midline, no thyromegaly Respiratory: normal respiratory effort, lungs clear to auscultation Cardiovascular: RRR, no murmur, no edema Gastrointestinal (Abdomen): normal bowel sounds, soft, nontender, no hepatosplenomegaly Musculoskeletal: no cyanosis or clubbing, extremities motor strength 5/5 Skin: no rashes, warm and dry Psychiatric: A+Ox3, euthymic affect Results & Data Laboratory Results Microbiology 09/05/18 12:43 Throat Group A Streptococcus Rapid Screen - Final Specimen negative for Group A Beta Strep by rapid method. Culture report to follow. 09/05/18 12:43 Throat Group A Beta-Hemolytic Strep Cult - Preliminary No beta strep isolated to date. _ (1) Fever Encounter type: Fever type:
[2018-09-06] MEDS: cefTRIAXone SODIUM 1,000 MG in DEXTROSE 5% 50 ML IV SCH (12:21)
--- NOTE | 2018-09-06 12:45 | Hospitalist Progress Note ---
Date of Service September 06, 2018 Assessment & Plan (1) Fever: (2) Tachycardia: (3) Hypoxia: (4) Elevated d-dimer: 53-year-old admitted because of fever disease, Fever, possible from influenza A, which is supported by the signs and symptoms, Possible mild sepsis with weak evidence of acute tonsillitis, which is supported by leukocytosis, elevated ESR, pro-calcitonin, and lactase After discussed with patient the risk and benefit of medical treatment by using Tamiflu and Rocephin,, he agreed to take the risk of Rocephin and Tamiflu started Continue supportive care, plenty fluid intake, nutritious food, rest CT chest clear for infiltrate, urine clean, no abdominal pain, no diarrhea Tachycardia: Resolved, CTA did not show any central PE no PE on CTA chest, no DVT on Doppler ultrasound, Morbid obesity, likely has obstructive sleep apnea, has a long discussion with him with present with and children, strongly recommend him to have a PCP and further evaluation for sleep apnea and initiate CPAP or BiPAP machine, I did told him that if not treated of obstructive sleep apnea which will cause permanent organ damage and even . Subjective Generally feeling better, T-max was 37.6, Good appetite, Mild sore throat, Still has significant generalized weakness, no more whole body muscle ache, Review of Systems Constitutional: positive weakness, or fatigue Respiratory: dry cough, no sputum, wheezing, or dyspnea on exertion Cardiac: No chest pain, No orthopnea, No PND, No claudication, No palpitations , Abdomen: No pain, No nausea, No vomiting, No diarrhea, No constipation, No GI bleeding Musculoskeletal: No joint pain, No muscle pain, No swelling, No calf pain, No problem reported : No dysuria, No urinary frequency, No incontinence, No hematuria Neurologic: No paralysis, No weakness, No numbness/tingling, No vertigo, No balance problems Psychiatric: No depression symptoms, No anhedonism, No anxiety, No insomnia, No substance abuse Heme: No abnormal bleeding/bruising, No clotting problems, No swollen lymph nodes, No night sweats Skin: No rash, No itch, No new/changing skin lesions, No color change, No bleeding Physical Exam 2 Vital Signs (Past 24 Hours): Last Vital Signs Temp 37.0 C 09/06/18 11:53 Pulse 103 H 12/31/18 11:53 Resp 26 H 09/06/18 11:53 BP 132/80 09/06/18 11:53 Pulse Ox 92 09/06/18 11:53 Physical Exam: General Appearance: WD/WN, no apparent distress, Eyes: normal inspection, PERRL, EOMI, sclerae normal ENT: normal ENT inspection, hearing grossly normal, pharynx normal Neck: supple, no adenopathy, thyroid normal, no JVD, no carotid bruits, trachea midline Respiratory/Chest: chest non-tender, normal breath sounds, no respiratory distress, no accessory muscle use, breath sounds, rales, wheezing Cardiovascular: regular rate, rhythm, no JVD, no murmur Abdomen: normal bowel sounds, non tender, soft, no organomegaly, Extremities: normal range of motion, non-tender, normal inspection, no pedal edema, no calf tenderness, normal capillary refill , pelvis stable, joint has no limited range of motion, capillary refill is normal, no cyanosis clubbing Neurologic/Psychiatric: pinmaker II-XII nml as tested, no motor/sensory deficits, alert, normal mood/affect, oriented x 3 Skin: normal color, warm/dry, no rash Lymphatic: no adenopathy Results & Data Laboratory Results Laboratory Results - last 24 hr 09/05/18 09/05/18 09/05/18 12:36 12:44 12:44 WBC 14.26 H RBC 4.99 Hgb 14.5 Hct 45.0 MCV 90.2 MCH 29.1 MCHC 32.2 RDW Std Deviation 48.8 H RDW Coeff of Luke 14.9 H Plt Count 190 MPV 8.9 Immature Gran % (Auto) 0.4 Neut % (Auto) 87.2 Lymph % (Auto) 6.7 [place] % (Auto) 5.3 Eos % (Auto) 0.3 Baso % (Auto) 0.1 Immature Gran # (Auto) 0.05 H Neut # (Auto) 12.44 H Lymph # (Auto) 0.95 L [place] # (Auto) 0.76 H Eos # (Auto) 0.04 Baso # (Auto) 0.02 ESR PT INR APTT PTT Ratio D-Dimer Sodium 134 L Potassium 4.7 Chloride 100 Carbon Dioxide 27 Anion Gap 7.0 BUN 22 H Creatinine 1.27 Est Cr Clr Drug Dosing 110.3 Est GFR ( Amer) 75.3 Est GFR (Non-Af Amer) 65.0 BUN/Creatinine Ratio 17.3 Glucose 140 H Lactate Calcium 8.7 Magnesium 1.6 L Total Bilirubin 0.4 AST 24 ALT 51 Alkaline Phosphatase 68 Troponin I < 0.015 C-Reactive Protein Total Protein 8.5 H Albumin 3.6 Globulin 4.9 H Albumin/Globulin Ratio 0.7 L Procalcitonin Specimen Hemolysis Urine Color Urine Appearance Urine pH Ur Specific [place] Urine Protein Urine Glucose (UA) Urine Ketones Urine Blood Urine Nitrite Urine Bilirubin Urine Urobilinogen Ur Leukocyte Esterase Lyme Disease IgG Ab Lyme Disease IgM Ab Influenza Type A Ag Neg for Influ A Influenza Type B Ag Neg for Influ B 09/05/18 09/05/18 09/05/18 12:44 12:44 15:42 WBC RBC Hgb Hct MCV MCH MCHC RDW Std Deviation RDW Coeff of Luke Plt Count MPV Immature Gran % (Auto) Neut % (Auto) Lymph % (Auto) [place] % (Auto) Eos % (Auto) Baso % (Auto) Immature Gran # (Auto) Neut # (Auto) Lymph # (Auto) [place] # (Auto) Eos # (Auto) Baso # (Auto) ESR PT 10.6 INR 1.1 APTT 26.0 PTT Ratio 1.0 D-Dimer 570 H* Sodium Potassium Chloride Carbon Dioxide Anion Gap BUN Creatinine Est Cr Clr Drug Dosing Est GFR ( Amer) Est GFR (Non-Af Amer) BUN/Creatinine Ratio Glucose Lactate Calcium Magnesium Total Bilirubin AST ALT Alkaline Phosphatase Troponin I C-Reactive Protein Total Protein Albumin Globulin Albumin/Globulin Ratio Procalcitonin Specimen Hemolysis Urine Color Urine Appearance Urine pH Ur Specific [place] Urine Protein Urine Glucose (UA) Urine Ketones Urine Blood Urine Nitrite Urine Bilirubin Urine Urobilinogen Ur Leukocyte Esterase Lyme Disease IgG Ab Negative Lyme Disease IgM Ab Negative Influenza Type A Ag Influenza Type B Ag 09/05/18 09/05/18 09/06/18 15:42 16:15 05:30 WBC 17.67 H RBC 4.54 L Hgb 13.0 L Hct 40.7 L MCV 89.6 MCH 28.6 MCHC 31.9 L RDW Std Deviation 50.2 H RDW Coeff of Luke 15.2 H Plt Count 172 MPV 8.5 Immature Gran % (Auto) 0.2 Neut % (Auto) 88.2 Lymph % (Auto) 5.0 [place] % (Auto) 6.3 Eos % (Auto) 0.1 Baso % (Auto) 0.2 Immature Gran # (Auto) 0.04 H Neut # (Auto) 15.58 H Lymph # (Auto) 0.89 L [place] # (Auto) 1.12 H Eos # (Auto) 0.01 Baso # (Auto) 0.03 ESR PT INR APTT PTT Ratio D-Dimer Sodium Potassium Chloride Carbon Dioxide Anion Gap BUN Creatinine Est Cr Clr Drug Dosing Est GFR ( Amer) Est GFR (Non-Af Amer) BUN/Creatinine Ratio Glucose Lactate 2.2 H* Calcium Magnesium Total Bilirubin AST ALT Alkaline Phosphatase Troponin I C-Reactive Protein Total Protein Albumin Globulin Albumin/Globulin Ratio Procalcitonin Specimen Hemolysis Urine Color Dark Yellow Urine Appearance Clear Urine pH 6.0 Ur Specific [place] 1.029 Urine Protein Negative Urine Glucose (UA) Negative Urine Ketones Negative Urine Blood Negative Urine Nitrite Negative Urine Bilirubin Negative Urine Urobilinogen Negative Ur Leukocyte Esterase Negative Lyme Disease IgG Ab Lyme Disease IgM Ab Influenza Type A Ag Influenza Type B Ag 09/06/18 09/06/18 09/06/18 05:30 08:10 08:10 WBC RBC Hgb Hct MCV MCH MCHC RDW Std Deviation RDW Coeff of Luke Plt Count MPV Immature Gran % (Auto) Neut % (Auto) Lymph % (Auto) [place] % (Auto) Eos % (Auto) Baso % (Auto) Immature Gran # (Auto) Neut # (Auto) Lymph # (Auto) [place] # (Auto) Eos # (Auto) Baso # (Auto) ESR 38 H PT INR APTT PTT Ratio D-Dimer Sodium 135 L Potassium 3.9 D Chloride 103 Carbon Dioxide 26 Anion Gap 6.0 BUN 24 H Creatinine 1.19 Est Cr Clr Drug Dosing 133.7 Est GFR ( Amer) 81.5 Est GFR (Non-Af Amer) 70.3 BUN/Creatinine Ratio 20.1 H Glucose 114 H Lactate Calcium 7.8 L Magnesium 1.7 L Total Bilirubin AST ALT Alkaline Phosphatase Troponin I 0.031 C-Reactive Protein 15.40 H Total Protein Albumin Globulin Albumin/Globulin Ratio Procalcitonin Specimen Hemolysis Urine Color Urine Appearance Urine pH Ur Specific [place] Urine Protein Urine Glucose (UA) Urine Ketones Urine Blood Urine Nitrite Urine Bilirubin Urine Urobilinogen Ur Leukocyte Esterase Lyme Disease IgG Ab Lyme Disease IgM Ab Influenza Type A Ag Influenza Type B Ag 09/06/18 09/06/18 09/06/18 08:11 08:11 11:25 WBC RBC Hgb Hct MCV MCH MCHC RDW Std Deviation RDW Coeff of Luke Plt Count MPV Immature Gran % (Auto) Neut % (Auto) Lymph % (Auto) [place] % (Auto) Eos % (Auto) Baso % (Auto) Immature Gran # (Auto) Neut # (Auto) Lymph # (Auto) [place] # (Auto) Eos # (Auto) Baso # (Auto) ESR PT INR APTT PTT Ratio D-Dimer Sodium Potassium Chloride Carbon Dioxide Anion Gap BUN Creatinine Est Cr Clr Drug Dosing Est GFR ( Amer) Est GFR (Non-Af Amer) BUN/Creatinine Ratio Glucose Lactate 0.8 Calcium Magnesium Cancelled Total Bilirubin AST ALT Alkaline Phosphatase Troponin I C-Reactive Protein Cancelled Total Protein Albumin Globulin Albumin/Globulin Ratio Procalcitonin 18.50 H Specimen Hemolysis Urine Color Urine Appearance Urine pH Ur Specific [place] Urine Protein Urine Glucose (UA) Urine Ketones Urine Blood Urine Nitrite Urine Bilirubin Urine Urobilinogen Ur Leukocyte Esterase Lyme Disease IgG Ab Lyme Disease IgM Ab Influenza Type A Ag Influenza Type B Ag Microbiology 09/05/18 12:43 Throat Group A Streptococcus Rapid Screen - Final Specimen negative for Group A Beta Strep by rapid method. Culture report to follow. 09/05/18 12:43 Throat Group A Beta-Hemolytic Strep Cult - Preliminary No beta strep isolated to date. _ (1) Fever Encounter type: Fever type:
[2018-09-06] MEDS: OSELTAMIVIR PHOSPHATE 75 MG CAP PO SCH ×2 (13:07→19:28)
[2018-09-06 18:31] LABS: Amphetamines+Metham, Urine Neg (Neg); Barbiturates, Urine Neg (Neg); Benzodiazepine, Urine Neg (Neg); Cocaine, Urine Neg (Neg); MDMA (Ecstacy), Urine Neg (Neg); Methadone, Urine Neg (Neg); Opiate, Urine Neg (Neg); Phencyclidine, Urine Neg (Neg)
[2018-09-06] MEDS: ENOXAPARIN INJ 40 MG/0.4 ML SYR SQ SCH (19:29)
[2018-09-06] MEDS: ACETAMINOPHEN 325 MG TAB PO PRN (19:29)
[2018-09-07 08:07] LABS: Basophils # (auto) 0.03 K/uL (0-0.2); Basophils % (auto) 0.3 %; Eosinophils # (auto) 0.05 K/uL (0-0.5); Eosinophils % (auto) 0.5 %; Hematocrit (blood only) 41.7 % (42-52); Hemoglobin 13.3 g/dL (14.0-18.0); Immature Granulocytes # (auto) 0.03 K/uL (0.00-0.02); Immature Granulocytes % (auto) 0.3 %; Mean Corpuscular Volume 90.5 fL (80-100); Monocytes % (auto) 9.5 %; Neutrophils # (auto) 7.55 K/uL (1.4-6.5); Neutrophils % (auto) 71.4 %; Platelet Count 178 K/uL (130-400); RDW Coefficient of Variation 15.3 % (11.5-14.5); RDW Standard Deviation 50.8 fL (36.4-46.3); Red Blood Count 4.61 M/uL (4.7-6.1); White Blood Count 10.56 K/uL (4.8-10.8)
[2018-09-07 08:21] LABS: Mean Corpuscular Hgb Conc 31.9 g/dL (32-36)
[2018-09-07] MEDS: OSELTAMIVIR PHOSPHATE 75 MG CAP PO SCH (09:51)
[2018-09-07] MEDS: cefTRIAXone SODIUM 1,000 MG in DEXTROSE 5% 50 ML IV SCH (11:23)
[2018-09-07 11:53] VITALS: BP 151/93; TEMP 99.5; O2SAT 94
[2018-09-07] MEDS: ACETAMINOPHEN 325 MG TAB PO PRN (12:07)
--- NOTE | 2018-09-07 14:05 | Discharge Summary ---
Date of Service September 07, 2018 Admission HPI Per Admitting Provider 53 yo male with history of obesity and borderline diabetes, presents to the ED with sudden onset of chills and high grade fever that started suddenly this morning. The patient says he felt well the past few days. 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 He and his spent three days traveling by car from [place]. They would get out frequently and walk around. He had a good [place], felt normal. His appetite has been good. This morning he had terrible chills and then a high grade fever. His entire body is sore, especially his shoulders and back. His legs hurt, specifically his knees, but he has chronic arthritis. He has an intermittent, non-productive cough, says this is chronic issue, nothing new or worse. He was placed on oxygen but does not feel short of breath at all. His appetite is normal, he ate today. No nausea, no abdominal pain, no diarrhea. No rashes seen. No one else in the house is sick. Very thorough work up in the ED with CXR that was clear, CTA chest negative for central PE, no infiltrates seen. WBC elevated at 14k. BMP normal, lactate 2.2. D dimer slightly high at 570. Treated with Ibuprofen for his fever and NSS x 2 liters. HR elevated in 120's and BP in 100's systolic. 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, high stress Principal Diagnosis 31 Discharge Data Allergies Allergy/AdvReac Type Severity Reaction Status Date / Time No Known Allergies Allergy Unverified 09/05/18 12:33 Consultations 09/05/18 17:10 ED Decision to Admit Stat 09/06/18 11:14 Consult Infectious Diseases Routine Ordered Studies 09/05/18 15:24 CT angio chest PE protocol Stat 09/05/18 18:56 US venous doppler LE Urgent Hospital Course (1) Influenza: (2) Elevated d-dimer: (3) Hypoxia: (4) Tachycardia: 53-year-old admitted because of fever disease, Fever, possible from influenza A, which is supported by the signs and symptoms, After discussed with patient the risk and benefit of medical treatment by using Tamiflu , Patient was found has tonsillar enlargement bilaterally 1 degree, therefore possible infection from the acute tonsillitis, he getting Rocephin IV times 1 days, leukocytosis was totally normalized, I will give him 5 days more of Augmentin to complete full course of treatment Possible mild sepsis with weak evidence of acute tonsillitis upon admission, which is supported by leukocytosis, elevated ESR, pro-calcitonin, and lactase , blood cultures so far negative, PCP please follow-up Has been on supportive care, recommend patient continue to have plenty fluid intake, nutritious food, rest Tylenol as needed for the fever, CT chest clear for infiltrate, urine clean, no abdominal pain, no diarrhea Tachycardia: Resolved, CTA did not show any central PE no PE on CTA chest, no DVT on Doppler ultrasound, Morbid obesity, likely has obstructive sleep apnea, has a long discussion with him with present with and children, strongly recommend him to have a PCP and further evaluation for sleep apnea and initiate CPAP or BiPAP machine, I did told him that if not treated of obstructive sleep apnea which will cause permanent organ damage and even . Total Time Total Time Spent Total Time Spent (In Minutes): 35 Discharge Plan Discharge Items Patient Disposition: Home - Self-Care Reason For Visit: FEBRILE ILLNESS, TACHYCARDIC, HYPOXIA Discharge Diagnosis: Fever with unknown origin, Fever possible because of flu Condition: Fair Discharge Goals: Decrease discomfort, Diagnostic testing, Improve disease control, Improve function and Increase independence Activity: Resume your previous activity Non-emergency contact: Primary Care Provider Call non-emergency contact if: you have any medication questions and your temperature is above 100.5 Diet: Heart Healthy Add Provider Instructions: you have Fever likely from influenza A, Continue Tamiflu for 4 days, Possible has acute tonsillitis, was on Rocephin during this hospitalization, will give Augmentin p.o. for 5 days Continue supportive care, plenty fluid intake, nutritious food, rest You have morbid obesity, likely has obstructive sleep apnea, you need to have a PCP and further evaluation for sleep apnea and initiate CPAP or BiPAP machine you need to follow up with your primary care physician in 1 week, - take medication as instructed, never overdose or any misuse, or take with alcohol, because misuse of medicine may cause organ damage or , call me , or your primary care physician if have questions of discharge medicaitons. - call your primary care physician, or go to local emergency room if has any fever/chill, chest pain, shortness of breathing, nausea/vomiting/abdominal pain , facial droop/slurry speech/local weakness, or if has any questions. - fall precaution - diet as instructed Prescriptions: New oseltamivir [Tamiflu] 75 mg Capsule 75 mg PO BID 4 Days Qty: 8 RF: 0 amoxicillin-pot clavulanate [Augmentin] 875-125 mg tablet 1 tab PO BID Qty: 10 RF: 0 No Action No Known Home Medications RF: 0 Visit Report Forms: [facility] Stand-Alone Forms: [facility] Discharge Orders: Discharge Order (Routine); Ordered 09/07/18 Ordered By: Dre Zimmerman Admission Data Admit Date/Time: 09/05/18 18:10 Attending Provider: Dre Zimmerman Admit Provider: Gunnar Montes De Oca Primary Care Provider: PCP,NO Other Providers: Gunnar Montes De Oca ; Simone Alcocer Service: Telemetry
[2018-09-07 14:22] VITALS: PULSE 96
== END 2018-09-07 14:29 | disposition home or self-care (01) | DRG 872 ==
LOC: ED 12:04 → SUATTDRO 18:10 → 2E 18:10